=== PATIENT | female | born 1985 | race African-American/Black ===

== ENCOUNTER 2018-11-16 14:31 | Emergency (ER) | payer OTHER ==
[2018-11-16 14:37] VITALS: BP 112/74
--- NOTE | 2018-11-16 16:12 | ER Document Report ---
ED Dizziness/Weakness - General Chief Complaint: Dizziness Stated Complaint: DIZZY Time Seen by Provider: 11/16/18 16:00 Primary Care Provider: HEALTH,EMPLOYEE [ACTIVE STAFF] - Follow up as needed Mode of Arrival: Ambulatory Information source: Patient TRAVEL OUTSIDE OF THE [place] IN LAST 30 DAYS: No - HPI Patient complains to provider of: Near-syncope Notes: THE PT IS HERE WITH COMPLAINTS OF NEAR SYNCOPE. SHE STATES THAT SHE WAS STANDING UP TALKING TO SOMEONE AT WORK AND STARTED TO FEEL LIGHTHEADED LIKE SHE WAS GOING TO PASS OUT. NO CHEST PAIN, NO SOB, NO FEVER, NO N/V/D, NO DIAPHORESIS. SHE SAT DOWN AND HER SYMPTOMS IMPROVED. NO ABDO PAIN, NO N/V/D. NO N/T, NO WEAKNESS. SHE DID NOT PASS OUT. SHE FEELS TIRED NOW, BUT OTHERWISE NORMAL. NO DYSURIA/HEMATURIA. NO RASH. NO NECK STIFFNESS, NO HEADACHE. NO RECENT LONG TRIPS OR SURGERY, NO HORMONES, NO SMOKING, NO CANCER, NO HX OF DVT/PE. SHE ATE LUNCH TODAY NO OTHER COMPLAINTS AT THIS TIME. - Related Data Allergies/Adverse Reactions: No Known Allergies Allergy (Verified 11/16/18 14:33) Past Medical History - Social History Smoking Status: Never Smoker Chew tobacco use (# tins/day): No Frequency of alcohol use: None Drug Abuse: None Family History: Reviewed & Not Pertinent Patient has suicidal ideation: No Patient has homicidal ideation: No Renal/ Medical History: Denies: Hx Peritoneal Dialysis Past Surgical History: Reports: Hx Section Review of Systems - Review of Systems -: Yes All other systems reviewed and negative Physical Exam - Vital signs Vitals: Temp Pulse Resp BP Pulse Ox 97.8 F 79 18 112/74 100 11/16/18 14:36 11/16/18 14:36 11/16/18 14:36 11/16/18 14:36 11/16/18 14:36 - Notes Notes: GENERAL: alert, cooperative, nontoxic, no distress. HEAD: normocephalic, atraumatic EYES: conjunctiva pink without discharge, no external redness or swelling. Pupils are equal, round, reactive to light. EARS: no external swelling, no external redness NOSE: atraumatic, no external swelling MOUTH/THROAT: mucous membranes moist and pink, posterior pharynx without erythema, swelling, exudate. No trismus or drooling. NECK: soft, supple, full range of motion, no meningismus. CHEST: no distress, lungs clear and equal throughout. No wheezing, rales, rhonchi. CARDIAC: regular rate and rhythm, no murmur, normal capillary refill, normal pulses. No peripheral edema noted. BACK: full range of motion, no CVA tenderness. EXTREMITIES: full range of motion of all extremities. No redness, no swelling. NEURO: alert and oriented x 3, cranial nerves II through XII are grossly intact. Upper and lower extremities are equal throughout. Normal sensation. No focal deficits, full range of motion of all extremities. normal finger to nose. NIH stroke score of 0. PYSCH: appropriate mood, affect. Patient is cooperative. SKIN: pink, warm, dry, no rash. Course - Re-evaluation Re-evalutation: 11/16/18 19:12 Patient is nontoxic-appearing with stable vitals. Patient is here with complaints of near syncope while at work. She states that she was walking and felt like she was going to pass out. She never had any actual syncope. No chest pain. She felt slightly short of breath during the episode. Patient has no PE risk factors, she is PERC rule negative. Chest x-ray is negative. Labs are unremarkable aside from a slightly low glucose of 65. She was given juice for this. Troponin is negative. EKG is abnormal with nonspecific flattened/inverted T waves throughout. No EKGs to compare this to. I wanted to add on a d-dimer, add a delta troponin and discussed the EKG findings with cardiology, the patient declined and states that she needs to go home. She states that she would like to sign out AGAINST MEDICAL ADVICE at this time. I explained that she has the risk of worsening condition, PE, [place], possible . She verbalized understanding of this. Patient will be leaving the hospital AGAINST MEDICAL ADVICE. She was given a referral to cardiology and instructed to follow-up with cardiology at the next available appointment. Follow-up sooner if she develops chest pain, shortness of breath, passes out, and or has any further concerns. The patient and/or family have decided to leave against medical advice. The patient and/or family are of sound mind to make this decision. The risks of leaving were discussed with the patient and/or family who verbalized an understanding of these risks. The possibility of worsening condition, chance of increased morbidity, disability, mortality, and even were discussed. The patient and/or family still choose to leave against medical advice. Strict return instructions were given. They were also instructed to return to the emergency department for any concerns not outlined in the return instructions. - Vital Signs Vital signs: Temp Pulse Resp BP Pulse Ox 97.8 F 79 18 112/74 100 11/16/18 14:36 11/16/18 14:36 11/16/18 14:36 11/16/18 14:36 11/16/18 14:36 - Laboratory Result Diagrams: 11/16/18 16:40 11/16/18 16:40 Laboratory results interpreted by me: 11/16/18 11/16/18 11/16/18 16:28 16:38 16:40 Hgb 11.5 L MCV 75 L MCH 23.6 L MCHC 31.4 L RDW 19.1 H BUN POC Glucose 68 L Urine Ketones TRACE H 11/16/18 16:40 Hgb MCV MCH MCHC RDW BUN 27 H POC Glucose Urine Ketones - Diagnostic Test Radiology reviewed: Image reviewed, Reports reviewed - Negative chest x-ray - EKG Interpretation by [facility] EKG shows normal: Sinus rhythm, [place], Intervals, QRS Complexes Rate: Normal When compared to previous EKG there are: Other - Inverted T waves and flattened T waves in 2, 3, aVF, V2 through V6. Nonspecific changes. No STEMI. Discharge - Discharge Clinical Impression: Near syncope, Abnormal EKG, Hypoglycemia Condition: Stable Disposition: AGAINST MEDICAL ADVICE Instructions: Near Syncopal Episode ([facility]) Additional Instructions: Follow-up with cardiology at the next available appointment. Return the emergency department immediately for any worsening symptoms, high fever, persistent vomiting, passing out, chest pain or shortness of breath, or for any further concerns. Referrals: HEALTH,EMPLOYEE [ACTIVE STAFF] - Follow up as needed CLEO CERON MD [ACTIVE STAFF] - Follow up as needed
--- NOTE | 2018-11-16 16:29 | RADIOLOGY REPORT (SQ) ---
EXAM DESCRIPTION: CHEST SINGLE VIEW COMPLETED DATE/TIME: 11/16/2018 4:21 pm REASON FOR STUDY: NEAR SYNCOPE COMPARISON: None. EXAM PARAMETERS: NUMBER OF VIEWS: One view. TECHNIQUE: Single frontal radiographic view of the chest acquired. RADIATION DOSE: NA LIMITATIONS: None. FINDINGS: LUNGS AND PLEURA: No opacities, masses or pneumothorax. No pleural effusion. MEDIASTINUM AND HILAR STRUCTURES: No masses. Contour normal. HEART AND VASCULAR STRUCTURES: Heart normal in size. Normal vasculature. BONES: No acute findings. HARDWARE: None in the chest. OTHER: No other significant finding. IMPRESSION: NO ACUTE RADIOGRAPHIC FINDING IN THE CHEST. TECHNICAL DOCUMENTATION: JOB ID: [id number] [employer]- All Rights Reserved Reading location - IP/workstation name: [email or web address]
[2018-11-16 17:15] LABS: ABSOLUTE BASOPHILS # (AUTO) 0.1 10^3/uL (0.0-0.2); ABSOLUTE LYMPHOCYTES (AUTO) 1.3 10^3/uL (0.5-4.7); ABSOLUTE MONOCYTES (AUTO) 0.3 10^3/uL (0.1-1.4); ABSOLUTE NEUT (AUTO) 3.2 10^3/uL (1.7-8.2); BASOPHILS % (AUTO) 1.3 % (0-2); EOSINOPHILS % (AUTO) 0.8 % (0-6); HEMATOCRIT 36.6 % (36.0-47.0); HEMOGLOBIN 11.5 g/dL (12.0-15.5); LYMPHOCYTES % (AUTO) 26.9 % (13-45); MEAN CORPUSCULAR HEMOGLOBIN 23.6 pg (27.0-33.4); MEAN CORPUSCULAR HGB CONC 31.4 g/dL (32.0-36.0); MEAN CORPUSCULAR VOLUME 75 fl (80-97); MONOCYTES % (AUTO) 6.4 % (3-13); PLATELET COUNT 302 10^3/uL (150-450); RED BLOOD COUNT 4.86 10^6/uL (3.72-5.28); RED CELL DISTRIBUTION WIDTH 19.1 % (11.5-14.0); SEGMENTED NEUTROPHILS % (AUTO) 64.6 % (42-78); TOTAL CELLS COUNTED % (AUTO) 100 %; WHITE BLOOD COUNT 4.9 10^3/uL (4.0-10.5)
[2018-11-16 17:18] LABS: APPEARANCE,URINE CLEAR; BILIRUBIN,URINE NEGATIVE (NEGATIVE); COLOR,URINE YELLOW; GLUCOSE, URINE NEGATIVE (NEGATIVE); KETONES,URINE TRACE mg/dL (NEGATIVE); LEUKOCYTE ESTERASE,URINE NEGATIVE (NEGATIVE); NITRITE,URINE NEGATIVE (NEGATIVE); PROTEIN,URINE NEGATIVE (NEGATIVE); URINE SPECIFIC GRAVITY 1.012; UROBILINOGEN,URINE NEGATIVE mg/dL (<2.0)
[2018-11-16 17:29] LABS: ALANINE AMINOTRANSFERASE 44 U/L (9-52); ALBUMIN 4.3 g/dL (3.5-5.0); ALKALINE PHOSPHATASE 40 U/L (38-126); ANION GAP 12 (5-19); ASPARTATE AMINO TRANSFERASE 34 U/L (14-36); BILIRUBIN,DIRECT 0.3 mg/dL (0.0-0.4); BILIRUBIN,TOTAL 1.1 mg/dL (0.2-1.3); BLOOD UREA NITROGEN 27 mg/dL (7-20); CALCIUM 9.4 mg/dL (8.4-10.2); CARBON DIOXIDE 26 mmol/L (22-30); CHLORIDE 100 mmol/L (98-107); GLUCOSE 86 mg/dL (75-110); POTASSIUM 4.5 mmol/L (3.6-5.0); SODIUM 137.8 mmol/L (137-145); TOTAL PROTEIN 8.2 g/dL (6.3-8.2)
--- NOTE | 2018-11-16 23:16 | EKG REPORT ---
SEVERITY:- BORDERLINE ECG - SINUS RHYTHM BORDERLINE T ABNORMALITIES, DIFFUSE LEADS : Confirmed by: Traci Leon 16-Nov-2018 23:15:49
== END 2018-11-16 19:11 | disposition left against medical advice (07) ==
LOC: ER 14:31
DX: R55 Syncope and collapse (principal); E16.2 Hypoglycemia, unspecified; R06.02 Shortness of breath; R94.31 Abnormal electrocardiogram [ECG] [EKG]; Z53.20 Procedure and treatment not carried out because of patient's decision for unspecified reasons
CPT/HCPCS: 36415; 71045; 80053; 81001; 81025; 82962; 84484; 85025; 93005; 93010; 99284